=== PATIENT | male | born 1975 | race Caucasian/White ===

== ENCOUNTER 2020-09-26 00:10 | Emergency (ER) | payer OTHER, SELFPAY ==
[2020-09-26 00:16] VITALS: BP 163/91; PULSE 79; RESP 18; TEMP 36.1; O2SAT 97; BMI 29.7
--- NOTE | 2020-09-26 00:17 | XRR_ITS ---
PROCEDURE INFORMATION: Exam: XR Chest Exam date and time: 09/26/2020 12:29 AM Age: 45 years old Clinical indication: Pain; Chest pressure; Additional info: Cp TECHNIQUE: Imaging protocol: XR of the chest. Views: 1 view. COMPARISON: No relevant prior studies available. FINDINGS: Lungs: Unremarkable. No consolidation. Pleural spaces: Unremarkable. No pleural effusion. No pneumothorax. Heart/Mediastinum: Unremarkable. No cardiomegaly. Bones/joints: Unremarkable. XR/XR chest 1V portable 19655 IMPRESSION: No acute findings.
--- NOTE | 2020-09-26 00:17 | ECG_ITS ---
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 Measurements Intervals [place] Rate: 77 P: 47 [place]: 147 QRS: 66 QRSD: 129 T: 48 QT: 380 QTc: 431 Interpretive Statements SINUS RHYTHM RIGHT BUNDLE BRANCH BLOCK [120+ ms QRS DURATION, UPRIGHT V1, 40+ ms S IN I/aVL/V4/V5/V6] No previous ECG available for comparison Electronically Signed On 09-26-2020 16:01:42 CDT by Jeffrey Gonzalez M.D. [id number] f
[2020-09-26 00:39] LABS: Basophils % 0.6 %; Eosinophils # 0.1 10^3/uL (0.0-0.8); Hematocrit 41.7 % (42.0-52.0); Hemoglobin 13.7 g/dL (11.7-16.6); Lymphocytes # 2.6 10^3/uL (0.8-4.8); Lymphocytes % 36.8 %; Mean Corpuscular HGB Conc 32.9 g/dL (30.0-36.0); Mean Corpuscular Volume 85.3 fL (80-94); Mean Platelet Volume 10.4 fL (7.4-10.4); Monocytes # 0.6 10^3/uL (0.2-0.9); Neutrophils # 3.56 10^3/uL (1.8-7.7); Neutrophils % 51.5 %; Nucleated Red Blood Cells % 0 %; Platelet Count 203 10^3/cmm (130-400); Red Blood Count 4.89 10^6/uL (4.1-5.3); Red Cell Distribution Width 12.2 % (12.1-15.1); White Blood Count 6.9 10^3/uL (4.0-10.0)
[2020-09-26 00:52] LABS: D Dimer 0.32 ug/mIFEU (0-0.59)
--- NOTE | 2020-09-26 00:56 | W.ED.CHESTPA ---
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 Around 10 PM he was sitting in a rocking chair. He noted to have left-sided sharp chest pain radiating from the front to the back of his chest. He has had similar episodes in the past with pain for which she saw a chiropractor. He denies any cough, shortness of breath, nausea or diaphoresis. He does note that a drove back from [facility] very recently. He has no history of coronary disease. MD complaint: chest pain Onset (ago): hour(s) Timing of current episode: constant Prior episodes: Yes Onset: during exertion Pain location: left chest Pain radiation: back Relieving factors: nothing Associated symptoms: Deny abdominal pain, dyspnea, fever(s), nausea, palpitations, syncope or vomiting Review of Systems Const: Denies: fever(s) or chills Card: Reports: chest pain; Denies: palpitations, irregular heart rhythm or syncope Resp: Denies: dyspnea, productive cough, non-productive cough, wheezing, pain on inspiration or hemoptysis GI: Denies: abdominal pain, nausea or vomiting : Reports: difficulty urinating Neuro: Denies: numbness in extremities, weakness in extremities or dizziness Physical Exam Const: COMMON NORMALS: no acute distress, patient oriented x3 and alert GENERAL APPEARANCE: cooperative HENMT: COMMON NORMALS: normocephalic HEAD & SCALP: normocephalic Eye: COMMON NORMALS: Equal, round and reactive pupils present and EOMs intact bilaterally PUPIL: Yes Equal, round and reactive pupils present Chest: COMMONS NORMALS: normal inspection of the chest CHEST: Yes Symmetrical chest wall rise and Yes tenderness rib (left) Resp: COMMON NORMALS: normal respiratory effort, No use of accessory muscles and clear to auscultation bilaterally AUSCULTATION: clear to auscultation bilaterally Extremity: COMMON NORMALS: no calf tenderness and no pedal edema Neuro: COMMON NORMALS: patient oriented x3 SENSORIUM/ORIENTATION: Yes alert Course Vital Signs: Vital signs: Vital Signs Temperature 96.9 F L 09/26/20 00:16 Pulse Rate 63 09/26/20 03:40 Respiratory Rate 18 09/26/20 03:40 Blood Pressure 100/59 09/26/20 03:40 Pulse Oximetry 94 09/26/20 03:40 MDM - Chest Pain MDM Narrative: Medical decision making narrative: 45-year-old male with reproducible left-sided chest pain. His EKG shows a sinus rhythm with a rate of 75, normal axis, and a right bundle branch block. There are no acute ST changes. Chest x-ray is negative. Potassium is minimally low. Creatinine is minimally up. There is a negative D-dimer. Troponin is 6 and did not change at 2 hours. His pain is reproducible. Is likely costochondritis. He was counseled on this diagnosis and treatment plans. Lab Data: Labs: Lab Results 09/26/20 09/26/20 09/26/20 Range/Units 00:35 00:35 00:35 WBC 6.9 (4.0-10.0) 10^3/ uL RBC 4.89 (4.1-5.3) 10^6/u L Hgb 13.7 (11.7-16.6) g/dL Hct 41.7 L (42.0-52.0) % MCV 85.3 (80-94) fL MCH 28.0 (28.0-34.0) pg MCHC 32.9 (30.0-36.0) g/dL RDW 12.2 (12.1-15.1) % Plt Count 203 (130-400) 10^3/c mm MPV 10.4 (7.4-10.4) fL Neut % (Auto) 51.5 % Lymph % (Auto) 36.8 % Addison % (Auto) 9.0 % Eos % (Auto) 2.0 % Baso % (Auto) 0.6 % Neut # (Auto) 3.56 (1.8-7.7) 10^3/u L Lymph # (Auto) 2.6 (0.8-4.8) 10^3/u L Addison # (Auto) 0.6 (0.2-0.9) 10^3/u L Eos # (Auto) 0.1 (0.0-0.8) 10^3/u L Baso # (Auto) 0.0 (0.0-0.1) 10^3/u L Nucleated RBC % (a uto) 0 % Nucleated RBCs # 0.0 /100WBC D-Dimer (0-0.59) ug/mIFE U Sodium 141 (136-145) mmol/L Potassium 3.3 L (3.5-5.1) mmol/L Chloride 101 (98-107) mmol/L Carbon Dioxide 26 (22-29) mmol/L Anion Gap 17.3 (5-19) BUN 20 (6-20) mg/dL Creatinine 1.6 H (0.7-1.2) mg/dL GFR Calculation 46.6 L (90-130) mL/min Glucose 93 (65-115) mg/dL Calculated Osmolal ity 294 (285-295) mOsm/k g Calcium 8.9 (8.5-10.5) mg/dL Total Bilirubin 0.3 (0.15-1.2) mg/dL AST 16 (0-40) U/L ALT 11 (0-41) U/L Alkaline Phosphata se 73 (40-130) IU/L Creatine Kinase 301 (39-308) U/L Troponin T Baselin e 6 (0-15) ng/L Troponin T 120 Min [place] (0-15) ng/L Delta Troponin T (0-10) ABS# NT-Pro-B Natriuret Pep 52 (0-125) pg/mL Total Protein 6.5 L (6.6-8.7) g/dL Albumin 4.7 (3.5-5.2) g/dL Globulin 1.8 (1.3-4.6) g/dL 09/26/20 09/26/20 Range/Units 00:35 02:25 WBC (4.0-10.0) 10^3/ uL RBC (4.1-5.3) 10^6/u L Hgb (11.7-16.6) g/dL Hct (42.0-52.0) % MCV (80-94) fL MCH (28.0-34.0) pg MCHC (30.0-36.0) g/dL RDW (12.1-15.1) % Plt Count (130-400) 10^3/c mm MPV (7.4-10.4) fL Neut % (Auto) % Lymph % (Auto) % Addison % (Auto) % Eos % (Auto) % Baso % (Auto) % Neut # (Auto) (1.8-7.7) 10^3/u L Lymph # (Auto) (0.8-4.8) 10^3/u L Addison # (Auto) (0.2-0.9) 10^3/u L Eos # (Auto) (0.0-0.8) 10^3/u L Baso # (Auto) (0.0-0.1) 10^3/u L Nucleated RBC % (a uto) % Nucleated RBCs # /100WBC D-Dimer 0.32 (0-0.59) ug/mIFE U Sodium (136-145) mmol/L Potassium (3.5-5.1) mmol/L Chloride (98-107) mmol/L Carbon Dioxide (22-29) mmol/L Anion Gap (5-19) BUN (6-20) mg/dL Creatinine (0.7-1.2) mg/dL GFR Calculation (90-130) mL/min Glucose (65-115) mg/dL Calculated Osmolal ity (285-295) mOsm/k g Calcium (8.5-10.5) mg/dL Total Bilirubin (0.15-1.2) mg/dL AST (0-40) U/L ALT (0-41) U/L Alkaline Phosphata se (40-130) IU/L Creatine Kinase (39-308) U/L Troponin T Baselin e (0-15) ng/L Troponin T 120 Min [place] 6.00 (0-15) ng/L Delta Troponin T 0 (0-10) ABS# NT-Pro-B Natriuret Pep (0-125) pg/mL Total Protein (6.6-8.7) g/dL Albumin (3.5-5.2) g/dL Globulin (1.3-4.6) g/dL Discharge Plan Discharge Patient Disposition: Home Clinical Impression: Acute costochondritis Chest pain Qualifiers: Chest pain type: unspecified Qualified Code(s): R07.9 - Chest pain, unspecified Condition: Stable Prescriptions: New Medrol (Albaro) 4 mg tablets,dose pack See Rx Instructions .ROUTE .COMPLEX Qty: 21 RF: 0 Discharge Orders: Discharge ED (Routine); Ordered 09/26/20 Ordered By: Theo Taveras Discharge Diet: Usual diet Discharge Activity: Increase activity as tolerated Patient Instructions: Chest Pain (ED), Costochondritis (ED) Activity Restrictions/Additional Instructions: Return for worsening chest pain despite treatment, shortness of breath, vomiting liquids or medications, other concerning symptoms. Call your doctor at the beginning of the week, there may be more outpatient tests they wish to perform. Coding Level of Care Code ED Senior Managing Director for Chg Fwd Exam Detailed
[2020-09-26 00:59] LABS: Troponin(5th) Baseline 6 ng/L (0-15)
[2020-09-26 01:10] LABS: Alanine Aminotransferase 11 U/L (0-41); Albumin Level 4.7 g/dL (3.5-5.2); Alkaline Phosphatase 73 IU/L (40-130); Anion Gap 17.3 (5-19); Aspartate Amino Transferase 16 U/L (0-40); Blood Urea Nitrogen 20 mg/dL (6-20); Calcium 8.9 mg/dL (8.5-10.5); Carbon Dioxide 26 mmol/L (22-29); Chloride 101 mmol/L (98-107); Creatine Phosphokinase 301 U/L (39-308); Globulin 1.8 g/dL (1.3-4.6); Glomerular Filtration Rate 46.6 mL/min (90-130); Glucose 93 mg/dL (65-115); NT Pro B Type Natriuretic Pept 52 pg/mL (0-125); Osmolality Calculated 294 mOsm/kg (285-295); Potassium 3.3 mmol/L (3.5-5.1); Sodium 141 mmol/L (136-145); Total Bilirubin 0.3 mg/dL (0.15-1.2); Total Protein 6.5 g/dL (6.6-8.7)
[2020-09-26] MEDS: ketorolac 30 mg/mL INJ IVP (01:35)
[2020-09-26 02:01] VITALS: BP 154/87; PULSE 76; RESP 19; O2SAT 96
--- NOTE | 2020-09-26 02:17 | ECG_ITS ---
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 Measurements Intervals [place] Rate: 58 P: 16 [place]: 147 QRS: 53 QRSD: 120 T: 41 QT: 402 QTc: 395 Interpretive Statements SINUS BRADYCARDIA POSSIBLE RIGHT VENTRICULAR CONDUCTION DELAY [RSR (QR) IN V1/V2] No previous ECG available for comparison Electronically Signed On 09-26-2020 16:05:55 CDT by Jeffrey Gonzalez M.D. [id number]
[2020-09-26 03:09] VITALS: BP 123/86; PULSE 76; RESP 17; O2SAT 94
[2020-09-26 03:18] LABS: Troponin 5 2HR Delta 0 ABS# (0-10)
[2020-09-26 03:40] VITALS: BP 100/59; PULSE 63; RESP 18; O2SAT 94
== END 2020-09-26 03:40 | disposition home or self-care (01) ==
PROVIDERS: Emergency Provider Emergency Medicine
DX: M94.0 Chondrocostal junction syndrome [Tietze] (principal); R07.9 Chest pain, unspecified
CPT/HCPCS: 71045; 80053; 82550; 83880; 84484; 85025; 85378; 93005; 96374; 99284; J1885

== ENCOUNTER → 2023-05-23 09:32 | Outpatient (BNVA) | payer OTHER, SELFPAY | PROVIDERS: Visit Provider Nurse Practitioner Family | DX: R50.9 Fever, unspecified (principal); B34.9 Viral infection, unspecified | CPT/HCPCS: 87400; 87426 ==